=== PATIENT | male | born 1970 | race Caucasian/White ===

== ENCOUNTER 2017-07-11 06:02 | Inpatient (IN) | END 2017-08-10 14:17 | disposition left against medical advice (07) | DRG 871 ==

== ENCOUNTER 2018-06-28 16:35 | Emergency (ER) | payer OTHER ==
[~2018-06-28] VITALS: Ht 167.6 cm; Wt 75.9 kg
[~2018-06-28 16:35] MED LIST: DIC20; FAMO-96 PO; LISI10TA2 PO; MAG355OR14 PO; OLAN5TAB5 PO; OLAN5TAB68 PO; OXCA300T41 PO; PHEN125O3 PO; RIVA10TA PO; TRA100 PO; VENL37.56 PO; VENL37.59 PO; VENL75CA89 PO; VENL75TA2 PO
[2018-06-28] MEDS ORDERED: NITR-58 PO ×2 (16:47→20:07)
[2018-06-28 16:50] VITALS: Ht 167.6 cm; Wt 75.9 kg
[2018-06-28] MEDS ORDERED: NITROFURANTOIN (SR) 100 MG CAP PO ONE (17:00)
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
[2018-06-28 20:20] VITALS: BP 110/76; PULSE 85; RESP 18
== END 2018-06-28 20:25 | disposition home or self-care (01) ==
LOC: E/R 16:35
DX: N30.90 Cystitis, unspecified without hematuria (principal); I10 Essential (primary) hypertension; Z91.010 Allergy to peanuts
CPT/HCPCS: Z7502; Z7610; 99283

== ENCOUNTER 2018-07-26 11:27 | Emergency (ER) | payer OTHER ==
[~2018-07-26] VITALS: Wt 85.0 kg
[~2018-07-26 11:27] MED LIST changes: +NITR-58 PO
[2018-07-26] MEDS ORDERED: NITR-58 PO (12:57)
[2018-07-26] MEDS ORDERED: PHEN-538 PO (12:57)
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
[2018-07-26 15:22] VITALS: BP 122/78; PULSE 55; RESP 18
== END 2018-07-26 15:24 | disposition home or self-care (01) ==
LOC: E/R 11:27
DX: N30.90 Cystitis, unspecified without hematuria (principal)
CPT/HCPCS: 81001; 87086; Z7502; 99283

== ENCOUNTER 2018-09-13 21:35 | Emergency (ER) | payer OTHER ==
[~2018-09-13] VITALS: Ht 172.7 cm; Wt 75.5 kg
[~2018-09-13 21:35] MED LIST changes: +PHEN-538 PO
[2018-09-13 21:50] VITALS: Ht 172.7 cm; Wt 75.5 kg
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
[2018-09-13] MEDS ORDERED: PANT40TA3 PO (23:15)
[2018-09-13] MEDS ORDERED: FOSPHENYTOIN (PE) 1,000 MG in SOD CHLORIDE 0.9% 80 ML IVPB ONE (23:30)
[2018-09-13] MEDS ORDERED: DIVALPROEX (EC) 500 MG TAB PO ONE (23:30)
[2018-09-13] MEDS ORDERED: DIVALPROEX (EC) 250 MG TAB PO SCH (23:45)
[2018-09-14] MEDS ORDERED: OLAN10TA7 PO (00:18)
[2018-09-14] MEDS ORDERED: RISP2TAB3 PO (00:18)
[2018-09-14] MEDS ORDERED: DIVA125C2 PO (00:18)
[2018-09-14 09:34] VITALS: BP 110/70; PULSE 78; RESP 18
== END 2018-09-14 09:50 | disposition home or self-care (01) ==
LOC: E/R 21:35
DX: K92.0 Hematemesis (principal); D64.9 Anemia, unspecified; F10.10 Alcohol abuse, uncomplicated; R00.0 Tachycardia, unspecified; I10 Essential (primary) hypertension
CPT/HCPCS: 80053; 80164; 80185; 80307; 84484; 85025; 85610; 85730; 86850; 86900; 86901; 93005; Q2009; Z7610; 36415; 96374

== ENCOUNTER 2018-11-13 00:05 | Emergency (ER) | payer OTHER ==
[~2018-11-13] VITALS: Ht 185.4 cm; Wt 80.0 kg
[~2018-11-13 00:05] MED LIST changes: +DIVA125C2 PO; -FAMO-96 PO; -MAG355OR14 PO; -NITR-58 PO; +OLAN10TA7 PO; -OLAN5TAB5 PO; -OLAN5TAB68 PO; +PANT40TA3 PO; -PHEN-538 PO; +RISP2TAB3 PO; -VENL37.56 PO; -VENL37.59 PO; -VENL75CA89 PO; +WARF5TAB PO
[2018-11-13 00:22] VITALS: Ht 185.4 cm; Wt 80.0 kg
[2018-11-13] MEDS ORDERED: WARFARIN 10 MG TAB PO ONE (00:30)
[2018-11-13] MEDS ORDERED: WARFARIN 2.5 MG TAB PO ONE (00:30)
[2018-11-13] MEDS ORDERED: ENOXAPARIN 80 MG/0.8 ML SYG SC SCH (00:30)
[2018-11-13 01:22] VITALS: BP 141/86; PULSE 82; RESP 19
== END 2018-11-13 01:23 ==
LOC: E/R 00:05
DX: I82.412 Acute embolism and thrombosis of left femoral vein (principal); I10 Essential (primary) hypertension; Z91.010 Allergy to peanuts; Z79.01 Long term (current) use of anticoagulants
CPT/HCPCS: 93970